=== PATIENT | female | born 1960 | race Two or more races ===

== ENCOUNTER → 2021-08-19 | Outpatient (CLI) | payer MEDICARE ==
[2021-08-21 16:11] LABS: METANEPHRINE, UR 50 ug/L (Undefined)
[2021-08-22 07:11] LABS: DOPAMINE, URINE 141 ug/L (Undefined)
== END ==
LOC: LAB 07:41 → LAB SHORT 07:41 → LAB FUT 08-08 13:55
PROVIDERS: Internal Medicine Endocrinology, Diabetes & Metabolism
DX: D44.12 Neoplasm of uncertain behavior of left adrenal gland (principal)
CPT/HCPCS: 81050; 82384

== ENCOUNTER → 2022-01-16 | Outpatient (CLI) | payer MEDICARE | END | disposition home or self-care (01) | LOC: LAB 18:00 → LAB SHORT 01-17 10:19 → LAB 01-17 10:19 | DX: K52.9 Noninfective gastroenteritis and colitis, unspecified (principal) | CPT/HCPCS: 87338 ==

== ENCOUNTER 2022-04-02 11:40 | Emergency (ER) | payer MEDICARE ==
[~2022-04-02] VITALS: Ht 152.4 cm; Wt 119.3 kg
[2022-04-02] MEDS ORDERED: HYDROCODONE-AC1 EAC7 PO (13:05)
[2022-04-02] MEDS ORDERED: AMLODIPINE BESYL5 MG PO (13:06)
[2022-04-02] MEDS ORDERED: FLUC150A PO (13:06)
[2022-04-02] MEDS ORDERED: ROPINIROLE HCL0.5 MG PO (13:07)
[2022-04-02] MEDS ORDERED: FAMO20 PO (13:07)
[2022-04-02] MEDS ORDERED: BUPROPION HCL200 M1 PO (13:07)
[2022-04-02] MEDS ORDERED: FUROSEMIDE40 MG PO (13:08)
[2022-04-02] MEDS ORDERED: AZIT250 PO (13:14)
[2022-04-02] MEDS ORDERED: Cleocin HCl150 MG PO (13:14)
== END 2022-04-02 13:18 | disposition home or self-care (01) ==
LOC: ER 11:40
DX: L03.116 Cellulitis of left lower limb (principal); L03.115 Cellulitis of right lower limb; Z88.1 Allergy status to other antibiotic agents; Z88.8 Allergy status to other drugs, medicaments and biological substances; Z79.899 Other long term (current) drug therapy
CPT/HCPCS: 99283; A9270

== ENCOUNTER → 2022-08-27 | Outpatient (CLI) | payer MEDICARE ==
[~2022-08-27] MED LIST: AMLODIPINE BESYL5 MG PO; AZIT250 PO; BUPROPION HCL200 M1 PO; Cleocin HCl150 MG PO; FAMO20 PO; FLUC150A PO; FUROSEMIDE40 MG PO; HYDROCODONE-AC1 EAC7 PO; ROPINIROLE HCL0.5 MG PO
== END | disposition home or self-care (01) ==
LOC: LAB SHORT 10:45 → LAB 10:45
DX: R19.7 Diarrhea, unspecified (principal); R10.9 Unspecified abdominal pain; B82.9 Intestinal parasitism, unspecified
CPT/HCPCS: 87210

== ENCOUNTER → 2022-09-25 | Outpatient (CLI) | payer MEDICARE ==
[2022-09-30 07:10] LABS: DOPAMINE, URINE 161 ug/L (Undefined)
[2022-09-30 08:10] LABS: METANEPHRINE, UR 43 ug/L (Undefined)
== END ==
LOC: LAB SHORT 08:00 → LAB 08:00
PROVIDERS: Internal Medicine Endocrinology, Diabetes & Metabolism
DX: D49.7 Neoplasm of unspecified behavior of endocrine glands and other parts of nervous system (principal)
CPT/HCPCS: 81050; 82384

== ENCOUNTER → 2023-03-26 | Outpatient (CLI) | payer MEDICARE ==
[2023-03-31 09:12] LABS: METANEPHRINE, UR 30 ug/L (Undefined)
== END | disposition home or self-care (01) ==
LOC: LAB 07:00 → LAB SHORT 07:00
PROVIDERS: Internal Medicine Endocrinology, Diabetes & Metabolism
DX: D49.7 Neoplasm of unspecified behavior of endocrine glands and other parts of nervous system (principal)
CPT/HCPCS: 81050; 82530; 83835

== ENCOUNTER → 2024-03-12 | Outpatient (CLI) | payer MEDICARE ==
[2024-03-12 14:14] LABS: BASOPHILS ABSOLUTE AUTO 0.06 K/mm3 (0.00-0.23); BASOPHILS PERCENT AUTO 1 % (0-2); EOSINOPHILS ABSOLUTE AUTO 0.12 K/mm3 (0.00-0.68); EOSINOPHILS PERCENT AUTO 1 % (0-6); Hematocrit 38.2 % (33.0-51.0); IMMATURE GRAN ABSOLUTE AUTO 0.05 K/mm3 (0.00-0.10); IMMATURE GRAN PERCENT AUTO 1 % (0-1); LYMPHOCYTES PERCENT AUTO 30 % (21-46); MONOCYTES ABSOLUTE AUTO 0.88 K/mm3 (0.16-1.47); MONOCYTES PERCENT AUTO 8 % (4-13); Mean Corpuscular HGB Conc 31.4 g/dL (31.5-36.5); Mean Corpuscular Volume 89 fL (80-100); Mean Platelet Volume 9.9 fL (9.1-12.4); NEUTROPHILS ABSOLUTE AUTO 6.22 K/mm3 (1.96-9.15); NEUTROPHILS PERCENT AUTO 60 % (41-73); Platelet Count 329 K/mm3 (150-400); RDW Coefficient Variation 14.7 % (11.7-14.2); RDW Standard Deviation 47.8 fL (35.1-46.3); Red Blood Cell Count 4.29 M/mm3 (3.80-5.20); White Blood Cell Count 10.43 K/mm3 (4.00-11.30)
[2024-03-12 14:40] LABS: Albumin, Blood 3.4 g/dL (3.4-5.0); Albumin/Globulin Ratio 0.9 (0.8-1.8); Bilirubin, Total 0.3 mg/dL (0.1-1.0); Bun/Creatinine Ratio 16.3 (12.0-20.0); Calcium, Blood 9.2 mg/dL (8.5-10.1); Creatinine, Blood 1.04 mg/dL (0.40-1.00); Globulin, Blood 3.8 g/dL (2.2-4.0); Potassium, Blood 4.4 mmol/L (3.5-5.5); Total Protein, Blood 7.2 g/dL (6.4-8.2)
== END | disposition home or self-care (01) ==
LOC: LAB SHORT 14:07 → LAB 14:07
PROVIDERS: Physician Assistant Surgical
DX: R06.02 Shortness of breath (principal)
CPT/HCPCS: 80053; 83880; 84484; 85025; 85379

== ENCOUNTER → 2025-01-31 | Outpatient (CLI) | payer MEDICARE ==
[2025-01-31 20:44] LABS: Creatinine Urine 73.2 mg/dL (27.00-270.00)
== END | disposition home or self-care (01) ==
LOC: LAB SHORT 10:45 → LAB 10:45
PROVIDERS: Internal Medicine Endocrinology, Diabetes & Metabolism
DX: E27.8 Other specified disorders of adrenal gland (principal)
CPT/HCPCS: 81050; 82570